=== PATIENT | female | born 1950 | race Caucasian/White ===

== ENCOUNTER 2016-12-29 15:20 | Outpatient (CLI) | payer OTHER ==
--- NOTE | 2016-12-29 15:49 | DIAGNOSTIC IMAGING REPORT ---
PROCEDURE: XR CHEST 2 VIEW INDICATION: PNEUMONIA TECHNIQUE: PA and lateral views. COMPARISON: None. FINDINGS: Patchy left lower lobe infiltrate. Heart and mediastinum are normal. Thorax is normal. IMPRESSION: 1. Left lower lobe infiltrate.
== END 2016-12-29 23:00 ==
LOC: XR SRH 15:20
DX: R91.8 Other nonspecific abnormal finding of lung field (principal)

== ENCOUNTER 2017-01-05 12:32 | Outpatient (CLI) | payer OTHER ==
--- NOTE | 2017-01-05 12:58 | DIAGNOSTIC IMAGING REPORT ---
PROCEDURE: XR CHEST 2 VIEW INDICATION: PNEUMONIA TECHNIQUE: PA and lateral view. COMPARISON: Chest x-ray 12/29/2016 FINDINGS: Lungs are clear. No evidence of a left lower lobe infiltrate. Cardiovascular structures are normal. Bony thorax is unremarkable. IMPRESSION: 1. Negative chest. 2. Results discussed with Enriqueta Viveros.
== END 2017-01-05 23:00 ==
LOC: XR SRH 12:32
DX: J18.9 Pneumonia, unspecified organism (principal)

== ENCOUNTER 2017-02-25 15:02 | Outpatient (CLI) | payer OTHER ==
--- NOTE | 2017-02-25 16:18 | DIAGNOSTIC IMAGING REPORT ---
PROCEDURE: XR CHEST 2 VIEW INDICATION: ASTHMA/LEG PAIN TECHNIQUE: PA and lateral views. COMPARISON: Chest 01/05/2017 FINDINGS: Lungs are clear. Heart and mediastinum are normal. Thorax is normal. IMPRESSION: 1. Negative chest.
--- NOTE | 2017-02-25 16:20 | DIAGNOSTIC IMAGING REPORT ---
PROCEDURE: XR HIP 2VW W W/O AP PELVIS-LT INDICATION: ASTHMA/LEG PAIN TECHNIQUE: AP view of the pelvis and hips with lateral view of the left hip. COMPARISON: None. FINDINGS: Left HIP: Osseous structures and joint spaces are normal. PELVIS: Osseous pelvis is normal. L 04/05 of spondylosis with a vacuum disc. IMPRESSION: 1. Negative pelvis and left hip. 2. 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
== END 2017-02-25 23:00 ==
LOC: XR SRH 15:02
DX: M47.816 Spondylosis without myelopathy or radiculopathy, lumbar region (principal); M79.605 Pain in left leg; J45.901 Unspecified asthma with (acute) exacerbation